=== PATIENT | male | born 1940 | race Caucasian/White ===

== ENCOUNTER 2018-10-01 00:15 | Emergency (ER) | payer OTHER ==
[~2018-10-01] VITALS: Ht 172.7 cm; Wt 99.5 kg
[2018-10-01 00:19] VITALS: Ht 172.7 cm; Wt 99.5 kg
[2018-10-01 05:01] VITALS: BP 169/82
== END 2018-10-01 05:01 | disposition home or self-care (01) ==
LOC: ED 00:15
DX: S09.8XXA Other specified injuries of head, initial encounter (principal); S01.511A Laceration without foreign body of lip, initial encounter; S05.12XA Contusion of eyeball and orbital tissues, left eye, initial encounter; I10 Essential (primary) hypertension; I48.91 Unspecified atrial fibrillation; W06.XXXA Fall from bed, initial encounter; Y93.89 Activity, other specified; Y92.89 Other specified places as the place of occurrence of the external cause; Y99.8 Other external cause status
CPT/HCPCS: 90715

== ENCOUNTER 2018-10-01 16:53 | Emergency (ER) | payer OTHER | END 2018-10-01 19:19 | disposition home or self-care (01) | LOC: ED 16:53 ==